=== PATIENT | female | born 1970 | race Caucasian/White ===

== ENCOUNTER 2017-01-02 18:00 | Emergency (ER) | payer BC ==
--- NOTE | 2017-01-02 18:26 | Emergency Department Record ---
History of Present Illness - General Chief complaint: ENT Stated complaint: CONGESTION,SORE THROAT Time Seen by Provider: 01/02/17 18:18 Source: Patient Mode of Arrival: Ambulatory Limitations: No limitations - History of Present Illness Initial comments: The patient is here due to a 4 day hx of cough, congestion, nasal drainage, a hoarse voice and now ear pain. She denies any fever, chills, or SOB. MD complaint: Sore throat Onset/Timin -: Days(s) Location: Throat Quality: Aching Consistency: Constant Improves with: None Worsens with: None - Related Data Home Medications Medication Instructions Recorded Confirmed Last Taken Atorvastatin Calcium [Lipitor] 40 mg PO DAILY 01/02/17 01/02/17 01/02/17 Cholecalciferol (Vitamin D3) 5,000 unit PO WEEKLY 01/02/17 01/02/17 12/31/16 [Vitamin D3] Nebivolol HCl [Bystolic] 10 mg PO DAILY 01/02/17 01/02/17 01/02/17 Topiramate [Topamax] 50 mg PO BID 01/02/17 01/02/17 01/02/17 Varenicline Tartrate [Chantix] 1 mg PO ASDIR 01/02/17 01/02/17 01/02/17 Previous Rx's Medication Instructions Recorded Cefdinir [Omnicef] 300 mg PO BID #20 cap 01/02/17 Prednisone [Prednisone 20Mg] 40 mg PO DAILY #10 tab 01/02/17 Allergies Allergy/AdvReac Type Severity Reaction Status Date / Time codeine Allergy ANAPHYLAXIS Verified 01/02/17 18:18 Penicillins Allergy ANAPHYLAXIS Verified 01/02/17 18:18 Travel Screening - Travel/Exposure Within Last 30 Days Have you traveled within the last 30 days?: No - Travel/Exposure Within Last Year Have you traveled outside the [place] in the last year?: No - Additonal Travel Details Have you been exposed to anyone with a communicable illness?: No - Travel Symptoms Symptom Screening: None Review of Systems Constitutional: Reports: Malaise. Denies: Chills, Fever Eyes: Denies: Eye discharge ENT: Reports: Congestion, Ear pain Respiratory: Reports: Cough. Denies: Dyspnea Past Medical History - SOCIAL HISTORY Smoking Status: Current every day smoker Alcohol Use: None Drug Use: None - RESPIRATORY Hx Respiratory Disorders: Yes Hx Bronchitis: Yes Hx Pneumonia: Yes - CARDIOVASCULAR Hx Cardio Disorders: Yes Hx Hypertension: Yes - NEURO Hx Neuro Disorders: Yes Hx Headaches: Yes - GI Hx GI Disorders: No - Hx Genitourinary Disorders: No - ENDOCRINE Hx Endocrine Disorders: No - MUSCULOSKELETAL Hx Musculoskeletal Disorders: No - PSYCH Hx Psych Problems: No - HEMATOLOGY/ONCOLOGY Hx Hematology/Oncology Disorders: No Family Medical History Any Significant Family History?: No Physical Exam - General General Appearance: Alert, Oriented x3, Cooperative, No acute distress - Head Head exam: Atraumatic, Normocephalic, Normal inspection - Eye Eye exam: Normal appearance, PERRL - ENT ENT exam: Mucous membranes moist. negative: Normal orophraynx, TM's normal bilaterally (There is bilateral erythema, effusions and loss of landmarks.) Throat exam: Tonsillar erythema. negative: Normal inspection, Tonsillomegaly, Tonsillar exudate - Neck Neck exam: Normal inspection, Full ROM. negative: Lymphadenopathy, Meningismus , Tenderness - Respiratory Respiratory exam: Normal lung sounds bilaterally. negative: Respiratory distress - Cardiovascular Cardiovascular Exam: Regular rate, Normal rhythm, Normal heart sounds Course Vital Signs 01/02/17 18:06 Temperature 98.3 F Pulse Rate 86 Respiratory 20 Rate Blood Pressure 181/81 Pulse Ox 97 - Reevaluation(s) Reevaluation #1: I did explain to the patient that she most likely started out with a viral URI but that now it has infected her ears. She is to take Cefdinir and Prednisone as directed and see her PCP this week if not better. The patient is allergic to PCN but can take Keflex with no problems. 01/02/17 18:23 01/02/17 18:25 Disposition Disposition: Discharge Clinical Impression: Otitis media Qualifiers: Otitis media type: in diseases classified elsewhere Laterality: bilateral Qualified Code(s): H67.3 - Otitis media in diseases classified elsewhere, bilateral Disposition: Home, Self-Care Condition: (2) Stable Instructions: Otitis Media (ED) Additional Instructions: Please take Tylenol or Motrin for pain and take the Cefdinir and Prednisone as directed. Please see your PCP if not better in 3 days. Return to the ER for any worsening symptoms. Prescriptions: Cefdinir [Omnicef] 300 mg PO BID #20 cap Prednisone [Prednisone 20Mg] 40 mg PO DAILY #10 tab Forms: Patient Portal Access Time of Disposition: 18:25 Quality - Quality Measures Quality Measures: N/A - Blood Pressure Screening View Details: Yes Does Patient Have Any of the Following: No Blood Pressure Classification: Pre-Hypertensive BP Reading Systolic Measurement: 181 Diastolic Measurement: 81 Screening for High Blood Pressure: < Pre-Hypertensive BP, F/U Documented > [ G8950] Pre-Hypertensive Follow-up Interventions: Referral to alternative/primary care provider.
== END 2017-01-02 18:36 | disposition home or self-care (01) ==
LOC: ER 18:00
DX: H67.3 Otitis media in diseases classified elsewhere, bilateral (principal); R05 Cough; F17.210 Nicotine dependence, cigarettes, uncomplicated; J02.9 Acute pharyngitis, unspecified
CPT/HCPCS: 99282

== ENCOUNTER 2018-05-28 02:02 | Emergency (ER) | payer BC ==
[2018-05-28] MEDS ORDERED: KETOROLAC 30 MG/ML VIAL IM ONE (02:29)
[2018-05-28] MEDS ORDERED: ORPHENADRINE CITRATE 60MG/2ML VIAL IM ONE (02:29)
--- NOTE | 2018-05-28 02:52 | Emergency Department Record ---
History of Present Illness - General Chief complaint: Pain Stated complaint: SHOULDER AND ARM PAIN Time Seen by Provider: 05/28/18 02:25 Source: Patient Mode of Arrival: Ambulatory Limitations: No limitations - History of Present Illness Initial comments: The patient is here due to R shoulder and L wrist pain for one day. She denies any trauma or injury and just states the pain started in the morning and has gotten worse. The patient denies any CP, SOB, JARAD, neck pain or weakness. She has no hx of any trauma or similar issues. MD Complaint: Extremity pain Onset/Timin -: Days(s) - Related Data Previous Rx's Medication Instructions Recorded Prednisone [Prednisone 20Mg] 40 mg PO DAILY #10 tab 05/28/18 Allergies Allergy/AdvReac Type Severity Reaction Status Date / Time codeine Allergy ANAPHYLAXIS Verified 01/02/17 18:18 Penicillins Allergy ANAPHYLAXIS Verified 01/02/17 18:18 Travel Screening - Travel/Exposure Within Last 30 Days Have you traveled within the last 30 days?: No Review of Systems Constitutional: Denies: Chills, Fever Eyes: Denies: Eye discharge ENT: Denies: Congestion Respiratory: Denies: Cough, Dyspnea Past Medical History - SOCIAL HISTORY Smoking Status: Current every day smoker Drug Use: None - RESPIRATORY Hx Respiratory Disorders: Yes Hx Bronchitis: Yes Hx Pneumonia: Yes - CARDIOVASCULAR Hx Cardio Disorders: Yes Hx Hypertension: Yes - NEURO Hx Neuro Disorders: Yes Hx Headaches: Yes - GI Hx GI Disorders: No - Hx Genitourinary Disorders: No - ENDOCRINE Hx Endocrine Disorders: No - MUSCULOSKELETAL Hx Musculoskeletal Disorders: No - PSYCH Hx Psych Problems: No - HEMATOLOGY/ONCOLOGY Hx Hematology/Oncology Disorders: No Physical Exam - General General Appearance: Alert, Oriented x3, Cooperative, No acute distress - Head Head exam: Atraumatic, Normocephalic, Normal inspection - Eye Eye exam: Normal appearance, PERRL - Neck Neck exam: Normal inspection, Full ROM (There is full ROM of the neck with no pain.). negative: Lymphadenopathy, Meningismus, Tenderness, Thyromegaly - Respiratory Respiratory exam: Normal lung sounds bilaterally. negative: Respiratory distress - Cardiovascular Cardiovascular Exam: Regular rate, Normal rhythm, Normal heart sounds - GI/Abdominal GI/Abdominal exam: Soft, Normal bowel sounds. negative: Tenderness - Extremities Extremities exam: Normal capillary refill, Tenderness. negative: Normal inspection (There is very mild L wrist swelling dorsally. There is no erythema or warmth to either the R shoulder and L wrist.), Full ROM (The patient is unable to fully ROM the R shoulder and L wrist due to pain.) - Neurological Neurological exam: Alert, Altered, Normal gait, Oriented X3. negative: Abnormal gait, Motor sensory deficit (There is no weakness or numbness to the arms or legs. The patient also has normal speech.) - Psychiatric Psychiatric exam: negative: Depressed - Skin Skin exam: negative: Rash Course Vital Signs 05/28/18 02:17 Temperature 98.6 F Pulse Rate [ 93 H Left] Respiratory 18 Rate Blood Pressure 186/115 [Right Arm] Pulse Ox 97 - Reevaluation(s) Reevaluation #1: The patient is doing better at this time. Her ROM is improving in both areas. I did explain to her that the inflammation tests (ESR and CRP) are mildly abnormal but I am not exactly sure what the cause of her illness is. We will continue her on Prednisone and have her see her PCP next week for further evaluation. I also did discuss the mildly abnormal LFT's and she will bring the results to her PCP. 05/28/18 03:51 Reevaluation #2: I did ask the patient if she had any CP or SOB with this and she denied it. She states she has no hx of CP or CP with exertion. The patient's daughter then stated the patient did have CP 3 days ago. The patient denied it was anything significant and states it was just heartburn and resolved with GI meds. I repeatedly offered to order an EKG for the patient but she repeatedly refused and would like to see her PCP for it. She understood we did not evaluate her heart and she is repeatedly refusing an EKG and does not want any lab work ordered. 05/28/18 03:53 Medical Decision Making - Data Complexity MDM Data: Labs Ordered and/or Reviewed - Lab Data Result diagrams: 05/28/18 03:00 05/28/18 03:00 Disposition Disposition: Discharge Clinical Impression: Arthralgia Qualifiers: Joint pain location: shoulder Laterality: right Qualified Code(s): M25.511 - Pain in right shoulder Disposition: Home, Self-Care Condition: (2) Stable Instructions: Arthralgia (ED) Additional Instructions: Please continue the Prednisone and use Tylenol or Motrin for pain. Please see your family doctor in 3-4 days and bring the lab results to the appointment. Please return to the ER for any worsening symptoms. Prescriptions: Prednisone [Prednisone 20Mg] 40 mg PO DAILY #10 tab Forms: Patient Portal Access Time of Disposition: 03:58 Quality - Quality Measures Quality Measures: N/A - Blood Pressure Screening View Details: Yes Does Patient Have Any of the Following: No Blood Pressure Classification: Pre-Hypertensive BP Reading Systolic Measurement: 168 Diastolic Measurement: 86 Screening for High Blood Pressure: < Pre-Hypertensive BP, F/U Documented > [ G8950] Pre-Hypertensive Follow-up Interventions: Referral to alternative/primary care provider.
[2018-05-28 03:08] LABS: BASO % 0.4 % (0-6); EOS % 3.6 % (0-6); GRAN % 70.5 % (47-80); HEMATOCRIT 41.5 % (35.0-47.0); HEMOGLOBIN 13.6 gm/dl (11.6-16.0); LYMPH % 17.2 % (16-45); MEAN CELL VOLUME 88.7 fl (81-97); MEAN CORPUSCULAR HEMOGLOBIN 29.1 pg (27-33); MEAN CORPUSCULAR HGB CONC 32.8 g/dl (32-36); MEAN PLATELET VOLUME 9.4 fl (7.4-10.4); MONO % 8.3 % (0-9); PLATELET COUNT 259 K/uL (130-400); RED BLOOD COUNT 4.68 M/uL (3.80-5.40); RED CELL DISTRIBUTION WIDTH 12.8 % (11.5-14.5); WHITE BLOOD COUNT W/O DIFF 11.3 K/uL (4.2-12.2)
[2018-05-28 03:23] LABS: BLOOD UREA NITROGEN 17 mg/dL (6-20)
[2018-05-28 03:24] LABS: CREATININE 0.6 mg/dL (0.5-0.9); EST GLOMERULAR FILTRATION RATE > 60 mL/min
[2018-05-28 03:26] LABS: GLUCOSE,RANDOM 127 mg/dL (74-109)
[2018-05-28 03:29] LABS: ALB/GLOB RATIO 1.6 (1.1-1.8); ALBUMIN 4.3 g/dL (4.0-5.0); ALKALINE PHOSPHATASE 137 U/L (35-104); ALT/SGPT 93 U/L (<33); AST/SGOT 32 U/L (10.0-35.0); C-REACTIVE PROTEIN 2.77 mg/dL (<0.5)
[2018-05-28] MEDS ORDERED: PREDNISONE 20 MG TAB PO ONE (03:32)
[2018-05-28 03:38] LABS: ERYTHROCYTE SEDIMENTATION RATE 28 mm/hr (0-20)
== END 2018-05-28 04:02 | disposition home or self-care (01) ==
LOC: ER 02:02
DX: M25.511 Pain in right shoulder (principal); M25.532 Pain in left wrist; I10 Essential (primary) hypertension; R94.5 Abnormal results of liver function studies; F17.210 Nicotine dependence, cigarettes, uncomplicated
CPT/HCPCS: 80053; 85025; 85651; 86140; 96372; 99283; 99284; J1885; J2360; J7512